=== PATIENT | female | born 1960 | race Hispanic/Latino ===

== ENCOUNTER → 2020-04-30 | Outpatient (CLI) | payer BC | END | disposition home or self-care (01) | LOC: RAH 11:14 | PROVIDERS: ATTEND Internal Medicine | DX: I10 Essential (primary) hypertension (principal) | CPT/HCPCS: 71046 ==

== ENCOUNTER 2021-04-05 09:00 | Inpatient (IN) | payer BC ==
[~2021-04-05] VITALS: Ht 162.6 cm; Wt 93.9 kg
[~2021-04-05 09:00] MED LIST: LISI5TAB21 PO
[2021-04-05 10:16] LABS: APPEARANCE,URINE Clear (CLEAR); BILIRUBIN,URINE Negative (NEGATIVE); COLOR,URINE Yellow (YELLOW); GLUCOSE, URINE (UA) Negative (NEGATIVE); KETONES,URINE Negative (NEGATIVE); LEUKOCYTE ESTERASE ,URINE Negative (NEGATIVE); NITRATE,URINE Negative (NEGATIVE); OCCULT BLOOD,URINE Negative (NEGATIVE); PROTEIN,URINE Negative (NEGATIVE); UROBILINOGEN,URINE 0.2 mg/dL (0.2-1.0)
[2021-04-05 11:15] LABS: BASOPHILS % (AUTO) 0.8 % (0.0-5.0); EOSINOPHILS % (AUTO) 2.6 % (0.0-8.0); HEMATOCRIT 43.1 % (36-48); LYMPHOCYTES % (AUTO) 23.4 % (21.0-51.0); MEAN CORPUSCULAR HGB CONC 33.6 g/dL (32.0-36.0); MONOCYTES % (AUTO) 6.4 % (3.0-13.0); NEUTROPHILS % (AUTO) 66.5 % (40.0-77.0); PLATELET COUNT (AUTO) 184 K/uL (130-400); RED BLOOD CELL COUNT(AUTO) 4.84 MIL/uL (4.00-5.50); RED CELL DISTRIBUTION WIDTH 13.4 % (11.0-15.5); WHITE BLOOD COUNT (AUTO) 6.1 K/uL (4.8-10.8)
[2021-04-05 11:35] LABS: POTASSIUM 3.9 mmol/L (3.5-5.1)
[2021-04-05 12:08] LABS: INR 0.99 (0.85-1.15); PROTHROMBIN TIME 10.8 SEC (9.6-11.6)
[2021-04-05 13:00] VITALS: BP 145/60
[2021-04-08] VITALS (21 sets, daily range): BP systolic 123–154; BP diastolic 54–69
[2021-04-08] MEDS: CEFAZOLIN SODIUM 1 GM VIAL IVP SCH ×5 (05:00→23:26)
[2021-04-08] MEDS ORDERED: LACTATED RINGERS 1000ML 1,000 ML IV ONE (06:44)
[2021-04-08] MEDS ORDERED: CEFAZOLIN SODIUM 1 GM VIAL ONE (07:38)
[2021-04-08] MEDS ORDERED: PROPOFOL 10 MG/ML 20ML VIAL IV ONE (07:57)
[2021-04-08] MEDS ORDERED: LIDOCAINE HCL-MPF 1% 5ML AMP IJ ONE (07:57)
[2021-04-08] MEDS ORDERED: ROCURONIUM 10MG/1ML SYR 10 MG/ML ML ONE ×2 (07:58→09:21)
[2021-04-08] MEDS ORDERED: FENTANYL CITRATE PF 50 MCG/1 ML 2ML VIAL ONE ×2 (07:58→09:19)
[2021-04-08] MEDS ORDERED: MIDAZOLAM HCL 1 MG/ML 2ML VIAL ONE ×2 (07:58→11:37)
[2021-04-08] MEDS ORDERED: TRANEXAMIC ACID 1000MG/10ML ONE ×2 (08:30→10:52)
[2021-04-08] MEDS ORDERED: DEXAMETHASONE SOD PHOSPHATE 10MG/ML 1ML VIAL ONE (08:40)
[2021-04-08] MEDS ORDERED: DiphenhydrAMINE HCL 50 MG/ML VIAL IVP PRN (10:30)
[2021-04-08] MEDS ORDERED: ONDANSETRON 4MG INJ IVP PRN (10:30)
[2021-04-08] MEDS ORDERED: LIDOCAINE HCL-MPF 1% 2ML VIAL IV PRN (10:30)
[2021-04-08] MEDS: ACETAMINOPHEN 500 MG TABLET PO SCH ×2 (10:30→18:30)
[2021-04-08] MEDS ORDERED: POTASSIUM CHLORIDE 20MEQ/100ML 100 ML IV PRN (10:30)
[2021-04-08] MEDS ORDERED: TEMAZEPAM 15 MG CAPSULE PO PRN (10:30)
[2021-04-08] MEDS ORDERED: CALCIUM CARB 500MG PO PRN (10:30)
[2021-04-08] MEDS ORDERED: POTASSIUM CHLORIDE 10% ELIXIR 20 MEQ/15 ML UDCUP PO PRN (10:30)
[2021-04-08] MEDS ORDERED: OXYCODONE HCL 5 MG TAB PO PRN (10:30)
[2021-04-08] MEDS ORDERED: FERROUS FUMARATE 324 MG TABLET PO PRN (10:30)
[2021-04-08] MEDS ORDERED: 0.9%NACL 1000ML 1,000 ML IV SCH (10:30)
[2021-04-08] MEDS ORDERED: MEPERIDINE-PF 25 MG/ML SYG ONE (11:12)
[2021-04-08] MEDS: KETOROLAC 15MG/ML VIAL (15MG/ML) IV PRN ×2 (12:23→20:30)
[2021-04-08] MEDS: OXYCODONE HCL 5 MG TAB PO PRN ×2 (12:45→17:30)
[2021-04-08] MEDS: CELECOXIB 200 MG CAP PO SCH (20:29)
[2021-04-08] MEDS: PREGABALIN 25 MG CAP PO SCH (20:29)
[2021-04-08] MEDS: ASPIRIN 81 MG EC TAB PO SCH (20:30)
[2021-04-08] MEDS: FAMOTIDINE 20MG TAB PO SCH (20:30)
[2021-04-09] VITALS (7 sets, daily range): BP systolic 99–130; BP diastolic 47–65
[2021-04-09] MEDS: TRAMADOL HCL 50 MG TABLET PO PRN ×2 (00:46→17:14)
[2021-04-09] MEDS: ACETAMINOPHEN 500 MG TABLET PO SCH ×4 (03:08→18:14)
[2021-04-09 03:53] LABS: HEMATOCRIT 34.2 % (36-48); MEAN CORPUSCULAR HEMOGLOBIN 30.1 pg (27.0-33.0); MEAN CORPUSCULAR HGB CONC 33.9 g/dL (32.0-36.0); MEAN CORPUSCULAR VOLUME 88.6 fL (79-99); RED BLOOD CELL COUNT(AUTO) 3.86 MIL/uL (4.00-5.50); RED CELL DISTRIBUTION WIDTH 13.3 % (11.0-15.5); WHITE BLOOD COUNT (AUTO) 8.4 K/uL (4.8-10.8)
[2021-04-09 04:06] LABS: CREATININE 1.1 mg/dL (0.5-1.5); POTASSIUM 3.7 mmol/L (3.5-5.1)
[2021-04-09] MEDS: OXYCODONE HCL 5 MG TAB PO PRN ×3 (06:26→18:13)
[2021-04-09] MEDS: CEFAZOLIN SODIUM 1 GM VIAL IVP SCH ×2 (07:21→08:29)
[2021-04-09] MEDS: CELECOXIB 200 MG CAP PO SCH ×2 (08:35→20:19)
[2021-04-09] MEDS: FAMOTIDINE 20MG TAB PO SCH ×2 (08:35→20:18)
[2021-04-09] MEDS: PREGABALIN 25 MG CAP PO SCH ×2 (08:35→20:19)
[2021-04-09] MEDS: ASPIRIN 81 MG EC TAB PO SCH ×2 (08:35→20:18)
[2021-04-09] MEDS: POLYETHYLENE GLYCOL 3350 17 GM POWD.PACK PO SCH (08:36)
[2021-04-09] MEDS: LISINOPRIL 5 MG TABLET PO SCH (08:44)
[2021-04-09] MEDS: KETOROLAC 15MG/ML VIAL (15MG/ML) IV PRN (09:58)
[2021-04-10 00:08] VITALS: BP 118/63
[2021-04-10 03:31] VITALS: BP 132/63
[2021-04-10] MEDS: ACETAMINOPHEN 500 MG TABLET PO SCH (03:32)
[2021-04-10] MEDS: KCL 20 MEQ ERTAB PO PRN ×2 (03:32→05:18)
[2021-04-10 07:57] VITALS: BP 140/65
[2021-04-10] MEDS: FAMOTIDINE 20MG TAB PO SCH (08:27)
[2021-04-10] MEDS: POLYETHYLENE GLYCOL 3350 17 GM POWD.PACK PO SCH (08:27)
[2021-04-10] MEDS: PREGABALIN 25 MG CAP PO SCH (08:28)
[2021-04-10] MEDS: ASPIRIN 81 MG EC TAB PO SCH (08:28)
[2021-04-10] MEDS: LISINOPRIL 5 MG TABLET PO SCH (08:28)
[2021-04-10] MEDS: CELECOXIB 200 MG CAP PO SCH (08:28)
[2021-04-10] MEDS: OXYCODONE HCL 5 MG TAB PO PRN ×4 (08:29→20:01)
[2021-04-10] MEDS: KETOROLAC 15MG/ML VIAL (15MG/ML) IV PRN (08:37)
[2021-04-10 11:17] VITALS: BP 149/66
[2021-04-10] MEDS ORDERED: ACETAMINOPHEN 500 MG TABLET PO SCH (14:00)
[2021-04-10 15:53] VITALS: BP 149/68
[2021-04-10] MEDS ORDERED: AEC81 PO (17:50)
[2021-04-10] MEDS ORDERED: HYDR-4060 PO (17:50)
[2021-04-11] MEDS ORDERED: BISACODYL 10 MG SUPP.RECT RC PRN (10:30)
== END 2021-04-10 21:30 | DRG 470 ==
LOC: DAHIP 04-08 06:26 → 4AH 04-08 11:47
PROVIDERS: ADMIT Orthopaedic Surgery; ATTEND Orthopaedic Surgery
PROC: 0SRD0J9 Replacement of Left Knee Joint with Synthetic Substitute, Cemented, Open Approach (ICD-10-PCS; principal; 2021-04-08 08:00)
DX: M17.12 Unilateral primary osteoarthritis, left knee (principal); G89.29 Other chronic pain; I10 Essential (primary) hypertension; Z20.822 Contact with and (suspected) exposure to COVID-19; D64.9 Anemia, unspecified; Z96.651 Presence of right artificial knee joint; E66.9 Obesity, unspecified; Z68.35 Body mass index [BMI] 35.0-35.9, adult; Z83.3 Family history of diabetes mellitus; Z80.9 Family history of malignant neoplasm, unspecified
CPT/HCPCS: 36415; 80048; 81003; 85025; 85027; 85610; 87088; 87635; 87641; 97039; G0378; J0690; J1100; J1885; J2175; J2250; J2704; J3010; J3490; J7120